=== PATIENT | female | born 1965 | race Caucasian/White ===

== ENCOUNTER → 2021-09-27 | Day surgery (SDC) | payer OTHER ==
[~2021-09-27] VITALS: Ht 162.6 cm; Wt 94.3 kg
[~2021-09-27] MED LIST: COLESTIPOL HCL1 GM PO; PAROXETINE 20MG20 MG PO; VITAMIN B COMP1 EAC1 PO; VITAMIN D350 MC5 PO
== END | disposition home or self-care (01) ==
LOC: FAS 06:29
DX: Z12.11 Encounter for screening for malignant neoplasm of colon (principal); Z80.0 Family history of malignant neoplasm of digestive organs; Z86.010 Personal history of colon polyps; K76.0 Fatty (change of) liver, not elsewhere classified; K58.9 Irritable bowel syndrome, unspecified; Z20.822 Contact with and (suspected) exposure to COVID-19; N95.0 Postmenopausal bleeding
CPT/HCPCS: J2250; J2405; J2704; J7120